=== PATIENT | male | born 1970 | race Hispanic/Latino ===

== ENCOUNTER 2024-07-24 12:52 | Outpatient (CLI) | payer BC ==
[~2024-07-24 12:52] MED LIST: Iopamidol 370 76% 100 ML VIAL ONE
== END 2024-07-24 12:53 | disposition home or self-care (01) ==
LOC: CT 12:52
PROVIDERS: ATTEND Otolaryngology Plastic Surgery within the Head & Neck
DX: K11.20 Sialoadenitis, unspecified (principal); M47.812 Spondylosis without myelopathy or radiculopathy, cervical region
CPT/HCPCS: 70491